=== PATIENT | female | born 1955 | race African-American/Black ===

== ENCOUNTER 2019-02-12 19:32 | Inpatient (IN) | payer MEDICAID, OTHER | END 2019-02-15 02:09 | disposition home or self-care (01) | LOC: TELE 02-13 05:55 → ER 19:32 → TELE-EAST 02-13 08:27 | DX: R07.9 Chest pain, unspecified (principal); I25.9 Chronic ischemic heart disease, unspecified; N17.9 Acute kidney failure, unspecified; N18.3 Chronic kidney disease, stage 3 (moderate); I12.9 Hypertensive chronic kidney disease with stage 1 through stage 4 chronic kidney disease, or unspecified chronic kidney disease; N39.0 Urinary tract infection, site not specified ==

== ENCOUNTER → 2020-06-08 | Emergency (ER) | payer MEDICAID ==
[~2020-06-08] VITALS: Ht 175.3 cm; Wt 88.0 kg
[~2020-06-08] MED LIST: ATOR40TA52 PO; IRBE300T43 PO; KETOROLAC TROMETH 60MG/2ML VIAL IM ONE; LEVO500T21 PO
[2020-06-09 02:00] VITALS: BP 139/81
== END | disposition home or self-care (01) ==
LOC: ER 22:34
DX: M54.42 Lumbago with sciatica, left side (principal); M47.896 Other spondylosis, lumbar region; E78.5 Hyperlipidemia, unspecified; I10 Essential (primary) hypertension
CPT/HCPCS: 72131; 96372; J1885